=== PATIENT | female | born 1985 | race Caucasian/White ===

== ENCOUNTER → 2022-02-06 13:00 | Outpatient (CLI) | payer OTHER, SELFPAY ==
--- NOTE | ~2022-02-06 | US_ITS ---
EXAMINATION: US pelvic complete w TV DATE: 02/06/2022 13:28 INDICATION: Pelvic pain TECHNIQUE: Multiple transabdominal and endovaginal sonographic images of the pelvis were obtained. COMPARISON: 12/15/2015 FINDINGS: The uterus measures 9.6 x 3.8 x 5.2 cm. The endometrial complex measures up to 17 mm. There are multiple cystic areas of the endometrium. The right ovary measures 3.3 x 2.0 x 3.0 cm. The left ovary measures 2.9 x 1.5 x 2.4 cm. There is normal vascular flow in the ovaries. There is no free flu id in the pelvis. IMPRESSION: 1. Multiple cystic areas of the endometrium of unclear significance which could reflect cystic endome trial hyperplasia. Reviewed, dictated and finalized at location B. ASTRUCTURE ANALYST IMPRESSION: 1. Multiple cystic areas of the endometrium of unclear significance which could reflect cystic endometrial hyperplasia.
== END ==
PROVIDERS: PCP Nurse Practitioner; Visit Provider Nurse Practitioner
DX: R10.2 Pelvic and perineal pain (principal)
CPT/HCPCS: 76830; 76856

== ENCOUNTER 2022-04-09 01:00 | Day surgery (SDC) | payer BC, SELFPAY ==
[2022-03-27 10:56] VITALS: BMI 29.1
--- NOTE | 2022-03-27 11:01 | PC.NURSE ---
Report to the Outpatient Waiting Room, entrance under the green pavilion located off [facility], at time 1100 on date 04/09/22. Planned Procedure Time: 1300. Time changes happen often and if your time is changed the preop area will call you the afternoon before. - You and your visitor will be asked to self-screen and do not enter if you have any COVID symptoms. - Only one visitor is requested with a max of two and NO children visitors are allowed at this time. - The patient visitor may be requested to leave or wait in car when not with patient due to distancing restrictions. - A mask is REQUIRED within the hospital. Patients may have clear liquids (water, carbonated beverages, clear teas, apple juice) until 3 hours prior to surgery with a maximum of 20 ounces. - No food from midnight until time of surgery Take the following medications with a SIP of water the morning of surgery: TYLENOL IF NEEDED Medications to discontinue per physician: N/A Date to take last dose: N/A Please no make-up, nail citizen of [place], hairspray, perfume, deodorant, or body powder the day of surgery. No jewelry (including any body piercings) or valuables the day of surgery, leave them at home. Please take a shower or bath the night before, or the morning of, surgery with an antibacterial soap. Wear comfortable, loose fitting clothing. - Jewelry must be removed prior to entering the operating room. Rings and piercings that are not removed may be cut off. - The hospital will not accept responsibility for valuables. - Please leave all valuables, including medications, at home the day of surgery. If you are going home after surgery, a licensed wrecker driver must drive you home. - NO public transportation without another adult if you receive anesthesia. - We recommend that an adult stay with you for 24 hours following discharge. - We also recommend that you do not drive, make important decision, drink alcoholic beverages, or take any drugs that were not prescribed by your health care provider for at least 24 hours after your discharge time. Follow any additional instructions given to you from your surgeon. If you or anyone in your household have experienced Covid symptoms in the past week, please notify your surgeon or the nurse liaison at the phone number below for possible testing. Telephone instructions given to _RADHA STEPHENSON and asked if any additional questions and then verbalized understanding. Patient advised to call surgeon office or pre surgery nurse liaison [phone] if any additional questions.
--- NOTE | 2022-04-09 08:24 | WPDHPUPDATE1 ---
History and Physical Update Update Date/Time: 04/09/22 08:24 History and Physical has been reviewed, including an updated exam of the patient. There are NO changes in the patient's condition. Risks, benefits, and alternatives have been discussed and questions answered. Patient agrees to proceed with procedure.
--- NOTE | 2022-04-09 08:24 | PM.HPGS ---
History of Present Illness History of Present Illness Consent: Risks, benefits, and alternatives have been discussed and questions answered. Patient agrees to proceed with procedure. Chief complaint: menorrhagia,abn ultrasound Narrative: Kami Schmitt is a 36 year old female with heavy cycles and intermenstrual bleeding. Pelvic ultrasound reveals a complex endometrium measuring up to 17mm with multiple cystic areas suspicious for hyperplasia. Was recommended to proceed with D&C hysteroscopy. Risks of infection, bleeding, perforation, and possible pathology are reviewed. Patient voices understanding and agrees to proceed. Review of Systems Review of Systems: not repeated day of surgery; patient states no changes in status PMFSH Past Medical History Medical History (Updated 04/09/22 @ 08:27 by Stacey Zambrano MD) Asthma (normal spontaneous vaginal delivery) x4 Surgical History Surgical History (Updated 04/09/22 @ 08:26 by Stacey Zambrano MD) H/O laparoscopy 2004 for ectopic Social History Social History Smoking status: Never smoker Alcohol intake: never Substance use: never Substance use type: does not use Living arrangements: with family Spiritual care concerns: No Meds Home Medications and Allergies Home Medications Medication Instructions Recorded Confirmed Type acetaminophen 325 mg tablet 650 mg PO Q6H PRN Pain 03/27/22 03/27/22 History (Tylenol) ibuprofen 600 mg tablet 600 mg PO Q6H PRN Pain 03/27/22 03/27/22 History Allergies Allergy/AdvReac Type Severity Reaction Status Date / Time No Known Allergies Allergy Verified 03/27/22 10:55 Exam Const: General: healthy appearing and alert Orientation/consciousness: patient oriented x3 Resp: Effort & Inspection: normal respiratory effort GI: GI Palp: Yes Soft to palpation, No Tenderness to palpation present (GI) and No Palpable mass present : External Female Exam: normal external appearance Speculum Exam - Vagina: normal appearance of the vagina and normal vaginal discharge Speculum Exam - Cervix: normal appearance of the cervix Bimanual exam- vagina & uterus: uterine size normal and consistency normal Bimanual Exam- Adnexa, other: normal adnexae and No adnexal tenderness Neuro: General: patient oriented x3 Assessment and Plan Assessment and plan (1) Menorrhagia: Code(s): N92.0 - Excessive and frequent menstruation with regular cycle Status: Acute Assessment and Plan: plan to proceed with D&C hysteroscopy
[2022-04-09 10:59] VITALS: BP 131/76; PULSE 67; RESP 18; TEMP 36.6; O2SAT 100
--- NOTE | 2022-04-09 11:08 | P.PNAN_ITS ---
Anes - Initial Pre Proc Eval Procedure: Operation Date: 04/09/22 13:00 Proposed Procedures p Hysteroscopy, Dilation and Curettage - Stacey Zambrano MD Date/Time: 04/09/22 11:08 Surgeon: Stacey Zambrano MD Pre Op Diagnosis: menorrhagia,abn ultrasound Patient Data Age: 36 Gender: F Height: 1.65 m Weight: 83.5 kg Last Vital Signs Temp 36.6 C 04/09/22 10:59 Pulse 67 04/09/22 10:59 Resp 18 04/09/22 10:59 BP 131/76 04/09/22 10:59 Pulse Ox 100 04/09/22 10:59 O2 Del Method Room Air 04/09/22 10:59 Allergies Allergy/AdvReac Type Severity Reaction Status Date / Time No Known Allergies Allergy Verified 03/27/22 10:55 Home Medications Medication Instructions Recorded Confirmed Type acetaminophen 325 mg tablet 650 mg PO Q6H PRN Pain 03/27/22 03/27/22 History (Tylenol) ibuprofen 600 mg tablet 600 mg PO Q6H PRN Pain 03/27/22 03/27/22 History Patient hx anesthesia problems: none Family hx anesthesia problems: none Results Review: All pre-operative results and documents have been reviewed as part of the pre- operative evaluation. PMFSH Past Medical History Medical History Asthma (normal spontaneous vaginal delivery) x4 Surgical History Surgical History H/O laparoscopy 2004 for ectopic Social History Social History Smoking status: Never smoker Alcohol intake: never Substance use: never Substance use type: does not use Living arrangements: with family Spiritual care concerns: No Anes - Eval Final PreProcedure Day of Procedure 04/09/22 11:08 Patient weight: obese Heart: regular rate and rhythm Lungs: clear to auscultation Airway: Mallampati scale class II Neurological: alert and oriented Last oral intake: >/= 8 hours ASA classification: II Emergent: no Anesthetic plan: proceed Anesthesia type and monitoring: general GIVS and standard monitoring Results Review: All pre-operative results and documents have been reviewed as part of the pre- operative evaluation. Informed Consent: The patient's anesthetic plan and its attendant risks and benefits were discussed with the patient/family/POA. Questions were solicited and answers provided to the satisfaction of the patient/family/POA.
[2022-04-09] MEDS: ACETAMINOPHEN 500 MG TABLET 1000 MG PO (11:17)
[2022-04-09] MEDS: LACTATED RINGERS 1,000 ML 30 ML IV CONT (11:17)
[2022-04-09] MEDS: LIDOCAINE HCL 1% PF 30 ML VIAL 10 ML INFILTRATE (12:20)
[2022-04-09 12:30] VITALS: BP 105/60; PULSE 73; RESP 12; O2SAT 98
--- NOTE | 2022-04-09 12:30 | W.PM.PROC2 ---
Procedure Note - Detailed Date of Procedure 04/09/22 Pre-op Diagnosis menorrhagia,abn ultrasound Post-op Diagnosis Same Procedure Performed Hysteroscopic myomectomy with D&C Surgeon Stacey Zambrano MD Anesthesia MAC and Local Findings uterus sounds to 9cm; there is a large fibroid filling approximately 1/3 of the cavity Description of Procedure The patient is taken to the operating room and placed under anesthesia in the dorsal lithotomy position. She was prepped and draped in the usual sterile fashion. [place] speculum was placed in the vagina and the cervix is grasped on the anterior lip with a tenaculum. The cervix is injected in each quadrant with 1% lidocaine. The uterus is sounded to 9cm. The Aveta hysteroscope was placed with the above-stated findings. The intermediate blade is placed and under direct visualization the fibroid is resected. The hysteroscope was removed and the uterus curetted with a sharp curette until a good uterine cry was noted in all areas. All instruments are removed. Sponge, needle, and instrument counts are correct per the OR staff. The patient was awakened from anesthesia and taken to recovery in stable condition. Estimated Blood Loss 5 Drains No Packing No Pathology Yes ( Endometrial shavings and curette) Complications No immediate complications Condition Stable Disposition PACU
[2022-04-09 13:00] VITALS: BP 130/78; PULSE 71; RESP 12; O2SAT 98
[2022-04-09 13:20] VITALS: BP 117/76; PULSE 60; RESP 12
== END 2022-04-09 13:21 | disposition home or self-care (01) ==
PROVIDERS: PCP Physician Assistant; Visit Provider Obstetrics & Gynecology Gynecology
PROC: 0U5B8ZZ Destruction of Endometrium, Via Natural or Artificial Opening Endoscopic (ICD-10-PCS; CPT 58563; principal; 2022-04-09 13:00)
DX: N92.0 Excessive and frequent menstruation with regular cycle (principal); E66.9 Obesity, unspecified; Z68.30 Body mass index [BMI] 30.0-30.9, adult
CPT/HCPCS: 58558; 88305; A9270; J2250; J2704; J3010; J7120